=== PATIENT | female | born 1965 | race Caucasian/White ===

== ENCOUNTER 2016-07-17 23:34 | Emergency (ER) | payer MEDICAID ==
[~2016-07-17] VITALS: Ht 142.2 cm; Wt 64.4 kg
--- NOTE | 2016-07-17 23:36 | NUR ---
Patient taken to bed 07 via wheelchair per nurse.
[2016-07-17 23:40] VITALS: BP 141/78
--- NOTE | 2016-07-17 23:40 | NUR ---
Dr. Alejandro evaluating patient at bedside.
[2016-07-17] MEDS ORDERED: HYDROcodone/APAP 5/325 MG 1 TAB TAB PO ONE (23:45)
--- NOTE | 2016-07-17 23:50 | NUR ---
XRAY at bedside.
--- NOTE | 2016-07-17 23:53 | NUR ---
51Y F BIB FAMILY C/O OF PAIN TO RT ANKLE AFTER SHE SLIPPED AND FALL. PAIN 10/10 IN SCALE. V/S WNL.
[2016-07-18 00:30] VITALS: BP 139/72
--- NOTE | 2016-07-18 00:30 | NUR ---
Patient discharged with v/s stable. Written and verbal after care instructions given and explained BY DR JESUS Patient alert, oriented and verbalized understanding of instructions. Wheel Chair Assisted with to car. All questions addressed prior to discharge. ID band removed. Patient advised to follow up with PMD. Rx of NORCO given. Patient educated on indication of medication including possible reaction and side effects. Opportunity to ask questions provided and answered.
== END 2016-07-18 00:30 | disposition home or self-care (01) ==
LOC: MED 23:34
DX: S82.64XA Nondisplaced fracture of lateral malleolus of right fibula, initial encounter for closed fracture (principal); R03.0 Elevated blood-pressure reading, without diagnosis of hypertension; W18.30XA Fall on same level, unspecified, initial encounter; Y93.01 Activity, walking, marching and hiking; Y92.89 Other specified places as the place of occurrence of the external cause; Y99.8 Other external cause status